=== PATIENT | male | born 1995 | race Caucasian/White ===

== ENCOUNTER 2016-04-30 22:18 | Emergency (ER) | payer OTHER ==
[~2016-04-30] VITALS: Ht 170.2 cm; Wt 68.0 kg
[2016-04-30] MEDS ORDERED: PSEUDOEPHEDRINE 30 MG TAB PO ONE (23:00)
[2016-04-30] MEDS ORDERED: AZITHROMYCIN 250 MG TAB PO ONE (23:00)
--- NOTE | 2016-04-30 23:33 | EDDOCDS ---
Physician Documentation [facility] Name: Mikey Diallo Age: 20 yrs Sex: Male : 1995 Arrival Date: 04/30/2016 Time: 22:18 Bed 10 Private MD: HALEY Tavarez Disposition: 04/30/16 22:36 Discharged to Home/Self Care. Impression: Acute frontal sinusitis. - Condition is Stable. - Discharge Instructions: Sinusitis, Adult. - Prescriptions for Claritin- D 12 Hour 5-120 mg Oral Tablet Sustained Release 12 hr - take 1 tablet by ORAL route every 12 hours As needed; 30 tablet. Zithromax Z- James 250 mg Oral Tablet - take 1 tablet by ORAL route as directed for 5 days Day 1- take two tablets once. Day 2, 3, 4 , 5 take one tablet once daily.; 6 tablet. - Medication Reconciliation, Local Pharmacy Hours form. - Follow up: HALEY Tavarez; When: 4 - 5 days; Reason: Recheck today's complaints, Continuance of care. - Problem is an ongoing problem. - Symptoms are unchanged. Historical: - Allergies: no known allergies; - Home Meds: 1. nyquil Unknown Unknown daily 2. Excedrin Migraine 250-250-65 mg Oral tab - PMHx: none; - PSHx: none; - Social history: Smoking status: Patient states former smoker of tobacco. Patient uses alcohol only on a social basis. No barriers to communication noted, The patient speaks fluent Lao. - Family history: Not pertinent. - : The pt / caregiver states he / she is not on anticoagulants. Home medication list is obtained from the patient. - Exposure Risk Screening:: None identified. Vital Signs: 04/30 22:20 BP 136 / 70; Pulse 76; Resp 18 S; Temp 97.4(O); Pulse Ox 100% on R/A; Weight 68.04 kg / gr2 150 lbs (R); Height 5 ft. 7 in. (170.18 cm) (R); Pain 5/10; 22:20 Body Mass Index 23.49 (68.04 kg, 170.18 cm) gr2 MDM: 22:33 azithromycin 500 mg PO once ordered. ke 22:33 Pseudoephedrine 30 mg PO once ordered. ke Administered Medications: 23:00 Drug: azithromycin 500 mg [azithromycin 250 mg tablet (2 tabs)] Route: PO; cf2 23:31 Follow up: Response: No significant change. cf2 23:00 Drug: Pseudoephedrine 30 mg Route: PO; cf2 23:32 Follow up: Response: Pain is decreased cf2 Signatures: Rigo Reese, RN OFFICE RN OFFICE Aicha Rosa RN RN cf2 Yazmin Vicente RN RN tm5 MTDD
--- NOTE | 2016-04-30 23:33 | EDDOCDS ---
Nurse's Notes [facility] Name: Mikey Diallo Age: 20 yrs Sex: Male : 1995 Arrival Date: 04/30/2016 Time: 22:18 Bed 10 Private MD: TRAN Tavarez Diagnosis: Acute frontal sinusitis Presentation: 04/30 22:22 Presenting complaint: Patient states: per pt left ear pain with loss of hearing, sinus tm5 congestion with headaches today & chest congestion started today, denies fevers. Adult Sepsis Screening: The patient does not have new or worsening altered mentation. Patient's respiratory rate is less than 22. Systolic blood pressure is greater than 100. Patient has a qSOFA score of 0- Negative Sepsis Screen. Suicide/Homicide risk assessment- the patient denies having any suicidal and/or homicidal ideations and does not present with any other emotional, behavioral or mental health complaints. Status: The patient is an active duty maintenance service supervisor. Transition of care: patient was not received from another setting of care. 22:22 Acuity: JUSTIN Level 4 tm5 22:22 Method Of Arrival: Walkin/Carried/Asstd tm5 Triage Assessment: 22:24 General: Appears in no apparent distress, Behavior is appropriate for age, cooperative. tm5 Pain: Location: left ear Pain currently is 7 out of 10 on a pain scale. Pt Declines HIV testing. Neurological: Level of Consciousness is awake, alert, Oriented to person, place, time. EENT: Reports pain in left ear. Respiratory: Airway is patent Respiratory effort is even, unlabored, Respiratory pattern is regular, symmetrical. :. Derm: Skin is pink, warm & dry. Historical: - Allergies: no known allergies; - Home Meds: 1. nyquil Unknown Unknown daily 2. Excedrin Migraine 250-250-65 mg Oral tab - PMHx: none; - PSHx: none; - Social history: Smoking status: Patient states former smoker of tobacco. Patient uses alcohol only on a social basis. No barriers to communication noted, The patient speaks fluent Qatari. - Family history: Not pertinent. - : The pt / caregiver states he / she is not on anticoagulants. Home medication list is obtained from the patient. - Exposure Risk Screening:: None identified. Screenin:25 Screening information is obtained from the patient. Fall risk: No risks identified. tm5 Assistance ADL's: requires no assistance with activities of daily living. Abuse/DV Screen: The patient / caregiver reports he/she is: not in a situation that causes fear, pain or injury. Nutritional screening: No deficits noted. Advance Directives: Currently, there is no health care proxy. There is no active DNR order. home support is adequate. Assessment: 22:30 EENT: Reports nasal congestion nasal discharge. cf2 Vital Signs: 22:20 BP 136 / 70; Pulse 76; Resp 18 S; Temp 97.4(O); Pulse Ox 100% on R/A; Weight 68.04 kg gr2 (R); Height 5 ft. 7 in. (170.18 cm) (R); Pain 5/10; 22:20 Body Mass Index 23.49 (68.04 kg, 170.18 cm) gr2 Vitals: 22:20 Log In Time: April 30, 2016 at 22:20. gr2 ED Course: 22:19 Patient visited by Yoon Gil. gr2 22:19 Patient moved to Waiting gr2 22:20 TRAN Tavarez is Private Physician. gr2 22:21 Patient visited by Yoon Gil. gr2 22:22 Patient moved to Pre RCE gr2 22:23 Triage Initiated tm5 22:24 Family accompanied patient. tm5 22:26 Patient visited by Hesham Joy PCA. jmv 22:26 Patient moved to 10 tm5 22:28 Aicha Alonso,ANDERS is Primary Nurse. cf2 22:28 Patient visited by Aicha Alonso RN. cf2 22:29 Rigo Reese FNP is [facility]. ke 22:29 Patient visited by Rigo Reese FNP. ke 22:29 Patient visited by Rigo Reese FNP. ke 22:30 The patient / caregiver is instructed regarding the plan of care and ED course. cf2 22:30 No IV's were initiated during this patient's visit. No procedures done that require cf2 assistance. 22:36 HALEY Tavarez is Referral Physician. ke 23:32 Indu Lee MD is Attending Physician. cf2 Administered Medications: 23:00 Drug: azithromycin 500 mg [azithromycin 250 mg tablet (2 tabs)] Route: PO; cf2 23:31 Follow up: Response: No significant change. cf2 23:00 Drug: Pseudoephedrine 30 mg Route: PO; cf2 23:32 Follow up: Response: Pain is decreased cf2 Order Results: There are currently no results for this order. Outcome: 22:30 Discharge Assessment: Patient awake, alert and oriented x 3. No cognitive and/or cf2 functional deficits noted. Patient verbalized understanding of disposition instructions. Patient awake and alert. Oriented to person, place and time. patient administered narcotics - no. The following High Risk Discharge criteria are identified: None. Discharged to home. Condition: stable. Discharge instructions given to patient, Instructed on discharge instructions, follow up and referral plans. medication usage, Demonstrated understanding of instructions, medications, Prescriptions given X 2. No special radiology studies were completed. Property :Personal belongings accompany Pt. 22:36 Discharge ordered by Provider. ke 23:32 Patient left the ED. cf2 Signatures: Rigo Reese, TANK TRUCK OPERATOR TANK TRUCK OPERATOR Yoon Grace gr2 Aicha Alonso,RN RN cf2 Hesham Joy, MARIZOL CORE SHAPER Yazmin Yeung,RN RN tm5 JYOTID
--- NOTE | 2016-05-03 00:33 | EDDOCDS ---
Physician Documentation [facility] Name: Mikey Diallo Age: 20 yrs Sex: Male : 1995 Arrival Date: 04/30/2016 Time: 22:18 Bed 10 Private MD: HALEY Tavarez Disposition: 04/30/16 22:36 Discharged to Home/Self Care. Impression: Acute frontal sinusitis. - Condition is Stable. - Discharge Instructions: Sinusitis, Adult. - Prescriptions for Claritin- D 12 Hour 5-120 mg Oral Tablet Sustained Release 12 hr - take 1 tablet by ORAL route every 12 hours As needed; 30 tablet. Zithromax Z- James 250 mg Oral Tablet - take 1 tablet by ORAL route as directed for 5 days Day 1- take two tablets once. Day 2, 3, 4 , 5 take one tablet once daily.; 6 tablet. - Medication Reconciliation, Local Pharmacy Hours form. - Follow up: HALEY Tavarez; When: 4 - 5 days; Reason: Recheck today's complaints, Continuance of care. - Problem is an ongoing problem. - Symptoms are unchanged. Historical: - Allergies: no known allergies; - Home Meds: 1. nyquil Unknown Unknown daily 2. Excedrin Migraine 250-250-65 mg Oral tab - PMHx: none; - PSHx: none; - Social history: Smoking status: Patient states former smoker of tobacco. Patient uses alcohol only on a social basis. No barriers to communication noted, The patient speaks fluent Maori. - Family history: Not pertinent. - : The pt / caregiver states he / she is not on anticoagulants. Home medication list is obtained from the patient. - Exposure Risk Screening:: None identified. Vital Signs: 04/30 22:20 BP 136 / 70; Pulse 76; Resp 18 S; Temp 97.4(O); Pulse Ox 100% on R/A; Weight 68.04 kg / gr2 150 lbs (R); Height 5 ft. 7 in. (170.18 cm) (R); Pain 5/10; 22:20 Body Mass Index 23.49 (68.04 kg, 170.18 cm) gr2 MDM: 22:33 azithromycin 500 mg PO once ordered. ke 22:33 Pseudoephedrine 30 mg PO once ordered. merissa 05/01 19:15 T-Sheet-- Draft Copy was scanned into [employer] and attached to record. klr Administered Medications: 04/30 23:00 Drug: azithromycin 500 mg [azithromycin 250 mg tablet (2 tabs)] Route: PO; cf2 23:31 Follow up: Response: No significant change. cf2 23:00 Drug: Pseudoephedrine 30 mg Route: PO; cf2 23:32 Follow up: Response: Pain is decreased cf2 Signatures: Rigo Reese, ADMINISTRATIVE ASSISTANT DATA ENTRY Viktoria Archer ChristinaRN RN cf2 Yazmin VicenteRN RN tm5 The chart was reviewed and I authenticate all verbal orders and agree with the evaluation and treatment provided.Attachments: 05/01 19:15 T-Sheet-- Draft Copy klcrystal Chart Complete MTDD
--- NOTE | 2016-05-03 00:33 | EDDOCDS ---
Physician Documentation [facility] Name: Mikey Diallo Age: 20 yrs Sex: Male : 1995 Arrival Date: 04/30/2016 Time: 22:18 Bed 10 Private MD: HALEY Tavarez Disposition: 04/30/16 22:36 Discharged to Home/Self Care. Impression: Acute frontal sinusitis. - Condition is Stable. - Discharge Instructions: Sinusitis, Adult. - Prescriptions for Claritin- D 12 Hour 5-120 mg Oral Tablet Sustained Release 12 hr - take 1 tablet by ORAL route every 12 hours As needed; 30 tablet. Zithromax Z- James 250 mg Oral Tablet - take 1 tablet by ORAL route as directed for 5 days Day 1- take two tablets once. Day 2, 3, 4 , 5 take one tablet once daily.; 6 tablet. - Medication Reconciliation, Local Pharmacy Hours form. - Follow up: HALEY Tavarez; When: 4 - 5 days; Reason: Recheck today's complaints, Continuance of care. - Problem is an ongoing problem. - Symptoms are unchanged. Historical: - Allergies: no known allergies; - Home Meds: 1. nyquil Unknown Unknown daily 2. Excedrin Migraine 250-250-65 mg Oral tab - PMHx: none; - PSHx: none; - Social history: Smoking status: Patient states former smoker of tobacco. Patient uses alcohol only on a social basis. No barriers to communication noted, The patient speaks fluent Yi. - Family history: Not pertinent. - : The pt / caregiver states he / she is not on anticoagulants. Home medication list is obtained from the patient. - Exposure Risk Screening:: None identified. Vital Signs: 04/30 22:20 BP 136 / 70; Pulse 76; Resp 18 S; Temp 97.4(O); Pulse Ox 100% on R/A; Weight 68.04 kg / gr2 150 lbs (R); Height 5 ft. 7 in. (170.18 cm) (R); Pain 5/10; 22:20 Body Mass Index 23.49 (68.04 kg, 170.18 cm) gr2 MDM: 22:33 azithromycin 500 mg PO once ordered. ke 22:33 Pseudoephedrine 30 mg PO once ordered. merissa 05/01 19:15 T-Sheet-- Draft Copy was scanned into [employer] and attached to record. klr Administered Medications: 04/30 23:00 Drug: azithromycin 500 mg [azithromycin 250 mg tablet (2 tabs)] Route: PO; cf2 23:31 Follow up: Response: No significant change. cf2 23:00 Drug: Pseudoephedrine 30 mg Route: PO; cf2 23:32 Follow up: Response: Pain is decreased cf2 Signatures: Rigo Reese, BILL OF MATERIALS CLERK Viktoria Archer ChristinaRN RN cf2 Yazmin VicenteRN RN tm5 The chart was reviewed and I authenticate all verbal orders and agree with the evaluation and treatment provided.Attachments: 05/01 19:15 T-Sheet-- Draft Copy klcrystal Chart Complete MTDD
--- NOTE | 2016-05-03 00:33 | EDDOCDS ---
Nurse's Notes [facility] Name: Mikey Diallo Age: 20 yrs Sex: Male : 1995 Arrival Date: 04/30/2016 Time: 22:18 Bed 10 Private MD: TRAN Tavarez Diagnosis: Acute frontal sinusitis Presentation: 04/30 22:22 Presenting complaint: Patient states: per pt left ear pain with loss of hearing, sinus tm5 congestion with headaches today & chest congestion started today, denies fevers. Adult Sepsis Screening: The patient does not have new or worsening altered mentation. Patient's respiratory rate is less than 22. Systolic blood pressure is greater than 100. Patient has a qSOFA score of 0- Negative Sepsis Screen. Suicide/Homicide risk assessment- the patient denies having any suicidal and/or homicidal ideations and does not present with any other emotional, behavioral or mental health complaints. Status: The patient is an active duty guest service host. Transition of care: patient was not received from another setting of care. 22:22 Acuity: JUSTIN Level 4 tm5 22:22 Method Of Arrival: Walkin/Carried/Asstd tm5 Triage Assessment: 22:24 General: Appears in no apparent distress, Behavior is appropriate for age, cooperative. tm5 Pain: Location: left ear Pain currently is 7 out of 10 on a pain scale. Pt Declines HIV testing. Neurological: Level of Consciousness is awake, alert, Oriented to person, place, time. EENT: Reports pain in left ear. Respiratory: Airway is patent Respiratory effort is even, unlabored, Respiratory pattern is regular, symmetrical. :. Derm: Skin is pink, warm & dry. Historical: - Allergies: no known allergies; - Home Meds: 1. nyquil Unknown Unknown daily 2. Excedrin Migraine 250-250-65 mg Oral tab - PMHx: none; - PSHx: none; - Social history: Smoking status: Patient states former smoker of tobacco. Patient uses alcohol only on a social basis. No barriers to communication noted, The patient speaks fluent Sri Lankan. - Family history: Not pertinent. - : The pt / caregiver states he / she is not on anticoagulants. Home medication list is obtained from the patient. - Exposure Risk Screening:: None identified. Screenin:25 Screening information is obtained from the patient. Fall risk: No risks identified. tm5 Assistance ADL's: requires no assistance with activities of daily living. Abuse/DV Screen: The patient / caregiver reports he/she is: not in a situation that causes fear, pain or injury. Nutritional screening: No deficits noted. Advance Directives: Currently, there is no health care proxy. There is no active DNR order. home support is adequate. Assessment: 22:30 EENT: Reports nasal congestion nasal discharge. cf2 Vital Signs: 22:20 BP 136 / 70; Pulse 76; Resp 18 S; Temp 97.4(O); Pulse Ox 100% on R/A; Weight 68.04 kg gr2 (R); Height 5 ft. 7 in. (170.18 cm) (R); Pain 5/10; 22:20 Body Mass Index 23.49 (68.04 kg, 170.18 cm) gr2 Vitals: 22:20 Log In Time: April 30, 2016 at 22:20. gr2 ED Course: 22:19 Patient visited by Yoon Gil. gr2 22:19 Patient moved to Waiting gr2 22:20 Daysi [facility] is Private Physician. gr2 22:21 Patient visited by Yoon Gil. gr2 22:22 Patient moved to Pre RCE gr2 22:23 Triage Initiated tm5 22:24 Family accompanied patient. tm5 22:26 Patient visited by Hesham Joy PCA. jmv 22:26 Patient moved to 10 tm5 22:28 Aicha Alonso,RN is Primary Nurse. cf2 22:28 Patient visited by Aicha Alonso RN. cf2 22:29 [facility] ke 22:29 Patient visited by Rigo Reese FNP. ke 22:29 Patient visited by Rigo Reese FNP. ke 22:30 The patient / caregiver is instructed regarding the plan of care and ED course. cf2 22:30 No IV's were initiated during this patient's visit. No procedures done that require cf2 assistance. 22:36 HALEY Tavarez is Referral Physician. ke 23:32 Indu Lee MD is Attending Physician. cf2 05/01 19:15 T-Sheet-- Draft Copy was scanned into [employer] and attached to record. klr Administered Medications: 04/30 23:00 Drug: azithromycin 500 mg [azithromycin 250 mg tablet (2 tabs)] Route: PO; cf2 23:31 Follow up: Response: No significant change. cf2 23:00 Drug: Pseudoephedrine 30 mg Route: PO; cf2 23:32 Follow up: Response: Pain is decreased cf2 Order Results: There are currently no results for this order. Outcome: 22:30 Discharge Assessment: Patient awake, alert and oriented x 3. No cognitive and/or cf2 functional deficits noted. Patient verbalized understanding of disposition instructions. Patient awake and alert. Oriented to person, place and time. patient administered narcotics - no. The following High Risk Discharge criteria are identified: None. Discharged to home. Condition: stable. Discharge instructions given to patient, Instructed on discharge instructions, follow up and referral plans. medication usage, Demonstrated understanding of instructions, medications, Prescriptions given X 2. No special radiology studies were completed. Property :Personal belongings accompany Pt. 22:36 Discharge ordered by Provider. ke 23:32 Patient left the ED. cf2 Signatures: Rigo Reese, PAROLE BOARD MEMBER PAROLE BOARD MEMBER Yoon Grace gr2 Viktoria Coronado Christina,RN RN cf2 Hesham Joy, EARLY CHILDHOOD EDUCATION SPECIALIST EARLY CHILDHOOD EDUCATION SPECIALIST Yazmin Yeung,RN RN tm5 Chart Complete MTDD
== END 2016-04-30 23:32 | disposition home or self-care (01) ==
LOC: M ED 22:18
DX: J01.90 Acute sinusitis, unspecified (principal); Z87.891 Personal history of nicotine dependence

== ENCOUNTER 2016-08-21 13:02 | Emergency (ER) | payer OTHER ==
[~2016-08-21] VITALS: Ht 167.6 cm; Wt 61.5 kg
[2016-08-21] MEDS ORDERED: NAPROXEN 250 MG TAB PO ONE (14:15)
[2016-08-21] MEDS ORDERED: NAPR500T PO (15:01)
--- NOTE | 2016-08-21 15:04 | REP ---
LEFT HAND, FOUR VIEWS: HISTORY: Pain. There is a nondisplaced fracture of the 5th metacarpal. There is no dislocation. The joint spaces are normal in appearance. IMPRESSION: Nondisplaced fracture of the 5th metacarpal. Signed by Meet Christianson MD 08/21/2016 03:09 P
[2016-08-21 15:06] VITALS: BP 123/61
== END 2016-08-21 15:17 | disposition home or self-care (01) ==
LOC: M ED 14:09
DX: S62.307A Unspecified fracture of fifth metacarpal bone, left hand, initial encounter for closed fracture (principal); W01.10XA Fall on same level from slipping, tripping and stumbling with subsequent striking against unspecified object, initial encounter; Y92.9 Unspecified place or not applicable; Y93.9 Activity, unspecified; F17.200 Nicotine dependence, unspecified, uncomplicated